=== PATIENT | female | born 1940 | race Caucasian/White ===

== ENCOUNTER 2017-09-26 05:05 | Emergency (ER) | payer OTHER ==
[~2017-09-26] VITALS: Ht 154.9 cm; Wt 43.1 kg
--- NOTE | ~2017-09-26 | EKG ---
[facility] [place] [address] ELECTROCARDIOGRAM REPORT Name: TRUPTI DELUNA [facility] [id number] Admission: 09/26/17 Attend Phys: Discharge: 09/26/17 Date of : 38 Report #: [id number] THIS REPORT FOR: //name// [facility] ED Test Date: 2017-09-26 Test Time: 05:09:50 Pat Name: TRUPTI DELUNA Department: Room: Gender: F Senior Information Developer: Rylie NGUYEN : 1940 Requested By: José Miguel Manuel Order Number: [id number] MD: Audi Hale Measurements Intervals [place] Rate: 83 P: 80 [place]: 125 QRS: 39 QRSD: 85 T: 45 QT: 398 QTc: 468 Interpretive Statements Sinus rhythm RSR' in V1 or V2, probably normal variant No previous ECG available for comparison Electronically Signed On 09-26-2017 7:49:23 CDT by Adui Hale [email or web address] <ELECTRONICALLY SIGNED> By: Audi Hale MD, [facility] 09/26/17 0749 0509 0509 Audi Hale MD, FACC /EPI
[2017-09-26] MEDS ORDERED: ASPIR 8181 MG (05:18)
[2017-09-26] MEDS ORDERED: ZETIA10 MG PO (05:20)
[2017-09-26 05:32] LABS: ABSOLUTE NEUTROPHILS 9.7 thou/uL (1.4-8.2); BASOPHILS 0.6 % (0.0-2.0); EOSINOPHILS 1.6 % (0.0-3.0); HEMATOCRIT 43.3 % (37.0-47.0); HEMOGLOBIN 14.4 gm/dL (12.0-15.0); LYMPHOCYTES 13.3 % (24.0-44.0); MCH 29.1 pg (26.0-34.0); MCHC 33.3 g/dL (28.0-37.0); MCV 87.1 fL (80.0-100.0); MONOCYTES 11.2 % (1.0-8.0); PLATELET COUNT 219 thou/uL (150-400); POLYS 73.3 % (36.0-66.0); RBC 4.97 mil/uL (4.20-5.00); RDW 14.5 % (10.5-14.5); WBC 13.2 thou/uL (4.0-11.0)
[2017-09-26 05:36] LABS: ANION GAP 9 mmol/L (7-16); BUN 29 mg/dL (7-18); CALCIUM 9.7 mg/dL (8.5-10.1); CHLORIDE 101 mmol/L (98-107); CO2 32 mmol/L (21-32); GLUCOSE 120 mg/dL (74-106); POTASSIUM 3.2 mmol/L (3.5-5.1); SODIUM 142 mmol/L (136-145)
[2017-09-26 05:44] LABS: TROPONIN-I < 0.04 ng/mL (<0.06)
[2017-09-26] MEDS ORDERED: OMEPRAZOLE 20 M20 M1 PO (05:58)
[2017-09-26 07:21] VITALS: BP 148/63
== END 2017-09-26 07:23 | disposition home or self-care (01) ==
LOC: ER 05:05
PROVIDERS: Emergency Medicine
DX: R07.89 Other chest pain (principal); E78.00 Pure hypercholesterolemia, unspecified; Z90.710 Acquired absence of both cervix and uterus; Z88.5 Allergy status to narcotic agent

== ENCOUNTER 2018-11-10 10:51 | Inpatient (IN) | payer OTHER ==
[~2018-11-10] VITALS: Ht 160 cm; Wt 47.6 kg
[2018-11-10 10:51] VITALS: BP 157/70
[~2018-11-10 10:51] MED LIST: ASPIR 8181 MG; OMEPRAZOLE 20 M20 M1 PO; ZETIA10 MG PO
[2018-11-10] MEDS ORDERED: SYNTHROID100 MC1 PO (11:06)
[2018-11-10 11:11] LABS: ABSOLUTE NEUTROPHILS 3.4 thou/uL (1.4-8.2); HEMATOCRIT 43.6 % (37.0-47.0); HEMOGLOBIN 14.6 gm/dL (12.0-15.0); LYMPHOCYTES 23.5 % (24.0-44.0); MCHC 33.5 g/dL (28.0-37.0); MCV 89.3 fL (80.0-100.0); MONOCYTES 9.3 % (1.0-8.0); PLATELET COUNT 188 thou/uL (150-400); POLYS 63.2 % (36.0-66.0); RBC 4.88 mil/uL (4.20-5.00); RDW 13.8 % (10.5-14.5); WBC 5.4 thou/uL (4.0-11.0)
[2018-11-10 14:07] VITALS: BP 145/73
[2018-11-10 14:16] VITALS: BP 127/62
[2018-11-10 14:30] VITALS: BP 130/75
[2018-11-10] MEDS ORDERED: PEPCID20 MG PO (15:03)
[2018-11-10] MEDS ORDERED: SYNTHROID50 MCG PO (15:41)
--- NOTE | 2018-11-10 15:48 | NUR ---
PATIENT ADMITTED TO ROOM ACCOMPANIED BY HER SON. SHE IS ALERT ORIENTED X4. SHE STATES SHE IS HAVING EPIGASTRIC PAIN AND RATES PAIN AT 8/10. STATES PAIN IS CONSISTENT. GI CONSULT HAS BEEN PUT. SHE HAS BEEN ORIENTED TO ROOM AND UNIT ROUTINES. WILL CONT WITH PLAN OF CARE.
[2018-11-10 20:00] VITALS: BP 138/75
[2018-11-10 21:30] VITALS: BP 146/83
[2018-11-10 22:39] LABS: CALCIUM 9.1 mg/dL (8.5-10.1); CREATININE 0.9 mg/dL (0.6-1.0); POTASSIUM 3.7 mmol/L (3.5-5.1)
[2018-11-10 22:45] LABS: ALBUMIN 3.9 g/dL (3.4-5.0); TOTAL BILIRUBIN 0.4 mg/dL (<0.1-1.0); TOTAL PROTEIN 7.4 g/dL (6.4-8.2)
[2018-11-10 22:57] LABS: CHOLESTEROL 216 mg/dL (<200); HDL CHOLESTEROL 67 mg/dL (>40); LDL CHOLESTEROL 129 mg/dL (<100); TC:HDL 3.2 Ratio (Not establshd); TRIGLYCERIDE 102 mg/dL (<150); VLDL 20 mg/dL (<40)
[2018-11-10 22:58] LABS: SERUM ASSESSMENT Clear
--- NOTE | 2018-11-11 00:08 | NUR ---
ASSUMED CARE OF PT AT 1900. A&Ox4, COOPERATIVE. VS WERE STABLE. DENIED PAIN/NAUSEA/VOMITING/SOA AT START OF SHIFT. PT C/O EPIGASTRIC PAIN 2 HRS LATER AND STATED SHE WANTED TO TAKE MORPHINE PRN, GIVEN W/ PARTIAL RELIEF. THEN C/O FEELING NAUSEATED AND TELE MONITOR NOTED AN ST ELEVATION. CONTACTED CRIMINOLOGY TEACHER. EKG DONE AND LABS DRAWN. SURVEY TECHNOLOGIST CAME TO SEE PT AND PT AGREED TO HAVE CARDIAC CATH. PT SIGNED CONSENT, SON CONTACTED. R CASTILLO SHAVED AND TRANSFERRED TO ORDER PROCESSING MANAGER. WILL GO TO CCU POST PROCEDURE. REPORT GIVEN TO RN AND WILL TRANSFER BELONGINGS.
--- NOTE | 2018-11-11 02:43 | NUR ---
ASSUMED PT CARE AT 0017. PT IS A TRANSFER FROM DATA VISUALIZATION DEVELOPER. PT IS ORIGINALLY FROM 3W. WHILE ON 3W PT HAD A ST ELEVATION AND A TROP WAS DRAWN, PT HAD ELEVATED TROPONIN LEVEL, AND SHOWN ACUTE FL. PT WAS TAKEN DOWN TO DATA VISUALIZATION DEVELOPER AND CARDIAC STENT WAS PLACED. PT IS STABLE BUT RUNNING LOW BLOOD PRESSURE. PT TO REMAIN FLAT FOR FIVE HOURS, GROIN SITE ASSESSED WITH DATA VISUALIZATION DEVELOPER NURSE, RIGHT GROIN SITE IS DRIED, CLEAN AND INTACT. NO SIGN OF DISTRESS NOTED IN PT. FAMILY AT BEDSIDE BUT LEFT. DENIES ANY FURTHER NEEDS AT THIS TIME.
[2018-11-11 04:00] VITALS: BP 94/47
[2018-11-11 05:00] LABS: HEMATOCRIT 35.1 % (37.0-47.0); MCH 30.1 pg (26.0-34.0); MCHC 33.5 g/dL (28.0-37.0); MCV 89.7 fL (80.0-100.0); RBC 3.92 mil/uL (4.20-5.00); RDW 13.9 % (10.5-14.5); WBC 6.5 thou/uL (4.0-11.0)
[2018-11-11 05:02] LABS: HEMOGLOBIN 11.8 gm/dL (12.0-15.0)
[2018-11-11 05:32] LABS: CALCIUM 7.8 mg/dL (8.5-10.1); CREATININE 0.7 mg/dL (0.6-1.0); POTASSIUM 3.4 mmol/L (3.5-5.1)
[2018-11-11 05:44] LABS: TROPONIN-I 15.58 ng/mL (<0.06)
--- NOTE | 2018-11-11 07:57 | NUR ---
PT CONTINUES TO BE STABLE. BLOOD PRESSURE STAYS LOW, PT IS STABLE, NO SIGN OF DISTRESS NOTED IN PT. PT IS ON RROM AIR, GROIN SITE IS CLEAN, DRY AND INTACT. NO PAIN REPORTED. NAUSEA IS RESOLVED. DENIES ANY FURTHER NEEDS AT THIS TIME.
--- NOTE | 2018-11-11 10:18 | CATHLAB ---
[facility] [address] INVASIVE PROCEDURE REPORT Name: TRUPTI DELUNA Room #: 213-P ADM IN M.R.#: [id number] ������������� Admission: 11/10/18 ������������� Attend Phys: Wiley Montemayor MD Discharge: ��� ������������� ��� Date of : 38 Date of Service: 11/11/18 1018 �� Report #: [id number] �������� ��������������������������������������������[id number] THIS REPORT FOR: //name// APPROVED REPORT Study performed: 11/10/2018 22:16:59 Patient Details Patient Status: In-Patient Room #: The patient is a 78 year-old female Event Personnel Audi Hale Sericulture Teacher, Paola Harris RN RN, Daysi Stroud, Rachell Bell RTR, DISCHARGE PLANNER, Monitor Procedures Performed Art Access - R femoral artery* Left Heart Cath w/or w/o Coronaries [id number] [facility] , [address] Place w/wo Plasty Single LAD 552379 LISA Place w/wo Plasty Single RCA 252193 Hemostasis w/ Mynx 86485 Initial Mod Sed Same Phys/QHP Gr5y 365161 58814 Mod Sed Same Phys/QHP Ea 912663 Indication Non-STEMI , Chest pain Risk Factors Arterial Hypertension Procedure Narrative The patient was brought emergently to the Cardiac Catheterization Laboratory and was prepped and draped in a sterile manner. The Right Groin^ was infiltrated with 1% Lidocaine subcutaneous anesthesia. A PINNACLE 6FR Sheath #[id number] sheath was inserted into the RFA^. Coronary angiography was performed using coronary diagnostic catheters. The right coronary system was accessed and visualized with a JR4 catheter. The left coronary system was accessed and visualized with a JL4 catheter. The left ventricle was accessed and visualized with a angled Pigtail catheter. Left ventricular/Aortic Valve gradient assessed via catheter pullback. Left ventriculogram was performed in 30 degree projection. Closure device was deployed with a 6 Fr MYNXGRIP 6/7F #[id number]. A hematoma occurred. Intraoperative Conscious Sedation Sedation start time: 22:35 Case end Time: 00:01 [facility] [address] [place] [address] INVASIVE PROCEDURE REPORT Name: TRUPTI DELUNA Room #: 213-P [facility] [id number] ������������� Admission: 11/10/18 ������������� Attend Phys: Wiley Montemayor MD Discharge: ��� ������������� ��� Date of : 38 Date of Service: 11/11/18 1018 �� Report #: [id number] �������� ��������������������������������������������[id number] Fentanyl 50 mcg Versed 1 mg Fluoro Time: 10.42 minutes Dose: DAP 3114.30 cGycm2 827 mGy Contrast Type and Amount: Visipaque 265 ml Coronary Angiography The patient's coronary anatomy is right dominant. Diagnostic Cath Left Main Large, normal left main LAD Mild proximal LAD plaquing. Critical 99% mid LAD stenosis just after a large bifurcating anterolateral branch. The LAD extended to the distal inferior wall Diagonal 1 Mild plaquing at the origin of the first diagonal branch (10-20%) Circumflex Large, nondominant circumflex. 60-65% mid circumflex stenosis OM1 There were several small proximal and mid vessel marginal branches without significant stenosis OM2 Distally arising large marginal branch with minimal plaquing Right Coronary Dominant right coronary with variable 65-80% mid vessel stenosis RPLV Large posterior lateral branch, angiographically normal Left Ventriculography The left ventricle is mildly dilated in size with abnormal contractility. The left ventricular ejection fraction is estimated to be 35%. Left ventricular wall motion abnormalities are present. There is 1+ mitral insufficiency. Extensive mid to distal anterolateral wall, apical, and inferoapical hypokinesis. Hemodynamics The aortic pressure is 166/82 mmHg with a mean of 103 mmHg. The left ventricular pressure is 167/12 mmHg with a mean of mmHg. The left ventricular end diastolic pressure is 36 mmHg. PCI Technique Lesion Anticoagulation was achieved with Heparin, Integrilin. Patient was preloaded with Plavix. Percutaneous coronary intervention was performed on the mid left anterior descending artery segment. The lesion stenosis prior to intervention was 99% with GRZEGORZ 2 flow. A LAUNCHER 6FR JL4.5 #[id number] Guide Catheter was used to engage the LCA ostium. A Luge Wire (J) .014 X 182CM #[id number] Interventional Guidewire was used to cross the lesion. [facility] [address] [place] [address] INVASIVE PROCEDURE REPORT Name: TRUPTI DELUNA Room #: 213-P [facility] IN .#: [id number] ������������� Admission: 11/10/18 ������������� Attend Phys: Wiley Montemayor MD Discharge: ��� ������������� ��� Date of : 38 Date of Service: 11/11/18 1018 �� Report #: [id number] �������� ��������������������������������������������[id number] BALLOON DILATION A Balloon catheter Euphora RX 2.5 x 12 #[id number] was inserted and inflated up to 14.00atm for 23seconds. Repeat angiography revealed the following post-dilatation results: moderate residual stenosis. STENT DEPLOYMENT A drug-eluting stent RESOLUTE NIVIA RX 3.0 X 18 #[id number] was inserted and inflated up to 12.00atm for 26seconds. Repeat angiography revealed the following post-stent deployment results: mild intrastent stenosis. POST STENT DEPLOYMENT BALLOON DILATION A Balloon catheter TREK NC RX 3.0 X 15 #[id number] was inserted and inflated up to 18.00atm for 28seconds. Final angiography reveals 0 % stenosis with GRZEGORZ 3 flow. PCI Technique Lesion 2 Percutaneous Coronary Intervention was performed on the proximal right coronary artery. The lesion stenosis prior to intervention was 85% with GRZEGORZ 3 flow. A LAUNCHER 6FR JR 4 SH #[id number] Guide Catheter was used to engage the RCA ostium. A Luge Wire .014 x 182CM #[id number] Interventional Guidewire was used to cross the lesion. Balloon Dilation A Balloon catheter Euphora RX 2.5 x 12 #[id number] was inserted and inflated up to 14.00atm for 28seconds. Repeat angiography revealed the following post-dilatation results: moderately severe residual stenosis. Stent Deployment A drug-eluting stent RESOLUTE NIVIA RX 3.0 X 15 #[id number] was inserted and inflated up to 12.00atm for 22seconds. Post Stent Deployment Balloon Dilation A Balloon catheter TREK NC RX 3.0 X 15 #[id number] was inserted and inflated up to 16.00atm for 26seconds. Final angiography reveals 0 % stenosis with GRZEGORZ 3 flow. Conclusion 1. Moderately severe left ventricular dysfunction with anterolateral, apical, and inferoapical hypokinesis. Ejection fraction 35% [address] [address] INVASIVE PROCEDURE REPORT Name: TRUPTI DELUNA Room #: 213-P [facility] IN .R.#: [id number] ������������� Admission: 11/10/18 ������������� Attend Phys: Wiley Montemayor MD Discharge: ��� ������������� ��� Date of : 38 Date of Service: 11/11/18 1018 �� Report #: [id number] �������� ��������������������������������������������[id number] 2. Normal left main 3. Critical mid LAD stenosis successfully stented with a 3.0 x 18 mm Resolute medicated stent 4. Moderate mid circumflex stenosis (60-65%). Follow/treat medically 5. Severe proximal RCA stenosis successfully stented with a 3.0 x 15mm Resolute medicated stent. Recommendations Cardiac Rehabilitation Referral Aggressive Medical Therapy Medications Administered JAMIA Inhibitor (any) Aspirin (any) Beta [place] (any) Statin (any) Clopidogrel ��������������������������������������������� <ELECTRONICALLY SIGNED> ���������������������������������������� By: Audi Hale MD, [facility] ��������������������������������������������� 11/11/188 17 Audi Hale MD, FAC /INF
[2018-11-11 10:24] LABS: ALBUMIN 3.3 g/dL (3.4-5.0); DIRECT BILIRUBIN 0.2 mg/dL (<0.1-0.3); TOTAL BILIRUBIN 0.5 mg/dL (<0.1-1.0); TOTAL PROTEIN 6.5 g/dL (6.4-8.2)
--- NOTE | 2018-11-11 10:25 | EKG ---
[place] [address] [facility] [place] [address] ELECTROCARDIOGRAM REPORT Name: TRUPTI DELUNA Room #: 213-P ADM IN M.R.#: [id number] ������������������ Admission: 11/10/18 ������������������ Attend Phys: Wiley Montemayor MD Discharge: ������������������ Date of : 38 Report #: [id number] ����������������������������������������������������������������� [id number] THIS REPORT FOR: //name// [facility] ED Test Date: 2018-11-10 Test Time: 11:00:05 Pat Name: TRUPTI DELUNA Department: Room: 213 Gender: F Security Operations Manager: JACKI : 1940 Requested By: Danelle Ventura Order Number: [id number] MD: Audi Hale Measurements Intervals [place] Rate: 62 P: 78 [place]: 135 QRS: 45 QRSD: 88 T: 60 QT: 478 QTc: 486 Interpretive Statements Sinus rhythm RSR' in V1 or V2, right VCD Borderline prolonged QT interval No previous ECGs available for comparison Electronically Signed On 11-11-2018 10:24:57 CDT by Audi Hale [email or web address] ��������������������������������������������� <ELECTRONICALLY SIGNED> ���������������������������������������� By: Audi Hale MD, [facility] ��������������������������������������������� 11/11/18 1024 1100 1100 Audi Hale MD, FACC /EPI
--- NOTE | 2018-11-11 10:30 | EKG ---
[place] [address] [facility] [place] [address] ELECTROCARDIOGRAM REPORT Name: TRUPTI DELUNA Room #: 213-P ADM IN M.R.#: [id number] ������������������ Admission: 11/10/18 ������������������ Attend Phys: Wiley Montemayor MD Discharge: ������������������ Date of : 38 Report #: [id number] ����������������������������������������������������������������� [id number] THIS REPORT FOR: //name// [facility] Test Date: 2018-11-10 Test Time: 21:09:47 Pat Name: TRUPTI DELUNA Department: Room: 213 Gender: F Cake Winder: jamarcus subramanian RN : 1940 Requested By: Marianna Dueñas Order Number: [id number] MD: Audi Hale Measurements Intervals [place] Rate: 70 P: 85 [place]: 128 QRS: 40 QRSD: 86 T: 64 QT: 458 QTc: 495 Interpretive Statements Sinus rhythm Anterior infarct, possibly acute Compared to ECG 09/26/2017 05:09:50 ST (T wave) deviation now present Electronically Signed On 11-11-2018 10:30:22 CDT by Audi Hale [email or web address] ��������������������������������������������� <ELECTRONICALLY SIGNED> ���������������������������������������� By: Audi Hale MD, [facility] ��������������������������������������������� 11/11/18 1030 08 08 Audi Hale MD, FAC /EPI
--- NOTE | 2018-11-11 10:33 | EKG ---
[place] [address] [facility] [employer] [place] [address] ELECTROCARDIOGRAM REPORT Name: TRUPTI DELUNA Room #: 213-P ADM IN M.R.#: [id number] ������������������ Admission: 11/10/18 ������������������ Attend Phys: Wiley Montemayor MD Discharge: ������������������ Date of : 38 Report #: [id number] ����������������������������������������������������������������� [id number] THIS REPORT FOR: //name// [facility] Test Date: 2018-11-11 Test Time: 01:07:58 Pat Name: TRUPTI DELUNA Department: Room: 213 P Gender: F Fish Smoker: navdeep : 1940 Requested By: Audi Hale Order Number: [id number] MD: Audi Hale Measurements Intervals [place] Rate: 79 P: 78 [place]: 168 QRS: -30 QRSD: 85 T: -72 QT: 562 QTc: 645 Interpretive Statements Sinus rhythm Left axis deviation Abnrm T, probable ischemia, anterolateral lds Prolonged QT interval Compared to ECG 09/26/2017 05:09:50 ST and T wave abnormality is more pronounced Prolonged QT interval now present Electronically Signed On 11-11-2018 10:33:01 CDT by Audi Hale [email or web address] ��������������������������������������������� <ELECTRONICALLY SIGNED> ���������������������������������������� By: Audi Hale MD, [facility] ��������������������������������������������� 11/11/18 1033 Audi Hale MD, [facility] /EPI
--- NOTE | 2018-11-11 10:36 | EKG ---
[place] [address] [facility] [place] [address] ELECTROCARDIOGRAM REPORT Name: TRUPTI DELUNA Room #: 213-P ADM IN M.R.#: [id number] ������������������ Admission: 11/10/18 ������������������ Attend Phys: Wiley Montemayor MD Discharge: ������������������ Date of : 38 Report #: [id number] ����������������������������������������������������������������� [id number] THIS REPORT FOR: //name// [facility] Test Date: 2018-11-11 Test Time: 07:44:53 Pat Name: TRUPTI DELUNA Department: Room: 213 Gender: F Mid Level Java Developer: Chula BERMAN : 1940 Requested By: Audi Hale Order Number: [id number] MD: Audi Hale Measurements Intervals [place] Rate: 71 P: 86 [place]: 142 QRS: -8 QRSD: 95 T: 32 QT: 444 QTc: 483 Interpretive Statements Sinus rhythm RSR' in V1 or V2, right VCD Abnormal T, consider ischemia, anterior leads Prolonged QT interval Compared to ECG 09/26/2017 05:09:50 No significant change was found Electronically Signed On 11-11-2018 10:36:08 CDT by Audi Hale [email or web address] ��������������������������������������������� <ELECTRONICALLY SIGNED> ���������������������������������������� By: Audi Hale MD, FACC ��������������������������������������������� 11/11/18 1036 0744 0744 Audi Hale MD, [facility] /EPI
--- NOTE | 2018-11-11 12:40 | NUR ---
ASSUMED CARE OF PT AT APPROX 0700. PT IS ALERT AND ORIENTED X4, MONITORED ON TELE AND ABLE TO MAINTAIN 02 SAT >90 ON RA. PT DENIES ANY PAIN AND STATES SHE IS FEELING SO MUCH BETTER THAN WHEN SHE CAME IN AND THAT ALL SYMPTOMS HAVE RESOLVED. CATH SITE IS C/D/I AND SOFT. DENIES PAIN AT SITE. ASSESSMENT CHARTED. REPLACING POTASSIUM ORDERED. UPDATED PT ON POC, PT DENIES ANY QUESTIONS OR CONCERNS AT THIS TIME. WILL CONTINUE TO MONITOR.
[2018-11-11 15:50] VITALS: BP 102/44
[2018-11-11 19:45] VITALS: BP 109/53
[2018-11-11 22:08] LABS: GLYCOHEMOGLOBIN (HGB A1C) 5.5 % (4.8-5.6)
[2018-11-11 23:50] VITALS: BP 111/51
[2018-11-12 00:05] VITALS: BP 111/51
--- NOTE | 2018-11-12 03:41 | NUR ---
ASSUMED CARE 1899. VSS. ASSSESSMENT CHARTED. PT DENIES CP, SOA, N/V, DIZZINESS OR CONCERN. R GROIN SITE CDI NO HEMATOMA. RESUME SPECIALIST CALLED ABOUT LABS AND POTASSIUM PT RECIEVING, ORDERS RECIEVED. BMP ADDED FOR AM AND IVPB POTASSIUM CHANGED TO LIQUID FOR PATIENT COMFORT. AD NEPTALI AND STEADY. SLEEPING WELL THROUGH NIGHT PT HOPEFUL FOR D/C THIS AM. WILL CONTINUE TO MONITOR AND WITH POC.
[2018-11-12 05:14] VITALS: BP 110/60
[2018-11-12 05:50] LABS: CALCIUM 8.3 mg/dL (8.5-10.1); CREATININE 0.6 mg/dL (0.6-1.0); POTASSIUM 3.9 mmol/L (3.5-5.1)
[2018-11-12 08:59] VITALS: BP 131/67
--- NOTE | 2018-11-12 09:08 | 2DMMODE ---
[facility] [address] [place] [address] 2 D/M-MODE ECHOCARDIOGRAM Name: TRUPTI DELUNA Room #: 213-P [facility] IN .R.#: [id number] ������������� Admission: 11/10/18 ������������� Attend Phys: Wiley Montemayor MD Discharge: ��� ������������� ��� Date of : 38 Date of Service: 11/12/18 0907 �� Report #: [id number] �������� ��������������������������������������������[id number] THIS REPORT FOR: //name// APPROVED REPORT Study performed: 11/12/2018 08:11:49 EXAM: Comprehensive 2D, Doppler, and color-flow Echocardiogram Patient Location: Bedside Room #: 213 Status: routine BSA: 1.42 HR: 68 bpm BP: 110/60 mmHg Rhythm: NSR Other Information Study Quality: Good Indications CAD Hypertension/HDD NE 2D Dimensions RVDd: 38.46 mm IVSd: 7.25 (7-11mm) LVOT Diam: 17.12 (18-24mm) LVDd: 34.02 mm PWd: 6.68 (7-11mm) Ascending Ao: 32.12 (22-36mm) LVDs: 24.56 (25-40mm) Aortic Root: 24.04 mm IVC: 16.00 mm Volumes Left Atrial Volume (Systole) Single Plane 4CH: 17.03 mL Single Plane 2CH: 18.64 mL LA ESV Index: 14.00 mL/m2 Aortic Valve AoV Peak Chung.: 0.99 m/s AO Peak Gr.: 3.92 mmHg LVOT Max P.19 mmHg LVOT Max V: 0.89 m/s MAXIMUS Vmax: 2.08 cm2 Mitral Valve E/A Ratio: 0.8 [facility] [address] [place] [address] 2 D/M-MODE ECHOCARDIOGRAM Name: TRUPTI DELUNA Room #: 213-P [facility] IN [facility]#: [id number] ������������� Admission: 11/10/18 ������������� Attend Phys: Wiley Montemayor MD Discharge: ��� ������������� ��� Date of : 38 Date of Service: 11/12/18 0907 �� Report #: [id number] �������� ��������������������������������������������[id number] MV Decel. Time: 231.16 ms MV E Max Chung.: 0.85 m/s MV A Chung.: 1.01 m/s MV PHT: 67.04 ms IVRT: 101.50 ms Pulmonary Valve PV Peak Chung.: 0.80 m/s PV Peak Gr.: 2.59 mmHg Pulmonary Vein P Vein S: 0.67 m/s P Vein A: 0.11 m/s P Vein D: 0.37 m/s P Vein A Dur.: 124.6 msec P Vein S/D Ratio: 1.81 Tricuspid Valve TR Peak Chung.: 3.28 m/s RAP Estimate: 10.00 mmHg TR Peak Gr.: 43.16 mmHg PA Pressure: 53.00 mmHg Left Ventricle The left ventricle is normal size. There is normal left ventricular wall thickness. The left ventricular systolic function is normal. The left ventricular ejection fraction is within the normal range. LVEF is 55%. Mild distal septal and inferoapical hypokinesis Mild diastolic dysfunction is present (impaired relaxation pattern). Right Ventricle Right ventricle is at the upper limits of normal. The right ventricular systolic function is normal. Atria The left atrium size is normal. Right atrium is mildly dilated. Aortic Valve The aortic valve is normal in structure. Trace to mild aortic regurgitation. There is no aortic valvular stenosis. Mitral Valve The mitral valve is normal in structure. Mild mitral regurgitation. No evidence of mitral valve stenosis. Tricuspid Valve The tricuspid valve is normal in structure. Moderate to severe tricuspid regurgitation. PAP is estimated at [address] [address] 2 D/M-MODE ECHOCARDIOGRAM Name: TRUPTI DELUNA Room #: 213-P [facility] IN [facility]#: [id number] ������������� Admission: 11/10/18 ������������� Attend Phys: Wiley Montemayor MD Discharge: ��� ������������� ��� Date of : 38 Date of Service: 11/12/18 0907 �� Report #: [id number] �������� ��������������������������������������������[id number] Pulmonic Valve The pulmonary valve is normal in structure. Trace pulmonic regurgitation. Great Vessels The aortic root is normal in size. The ascending aorta is normal in size. IVC is dilated and collapses <50% with inspiration. Pericardium There is no pericardial effusion. <Conclusion> The left ventricular systolic function is normal. LVEF is 55%. Mild distal septal and inferoapical hypokinesis. Mild diastolic dysfunction. Right atrium is mildly dilated. The aortic valve is normal in structure. Trace to mild aortic regurgitation. The mitral valve is normal in structure. Mild mitral regurgitation. Moderately severe tricuspid regurgitation. Pulmonary artery pressure estimated at 50 mmHg. There is no pericardial effusion. ��������������������������������������������� <ELECTRONICALLY SIGNED> ���������������������������������������� By: Audi Hale MD, [facility] ��������������������������������������������� 11/12/18906 6 6 Audi Hale MD, FAC /INF
--- NOTE | 2018-11-12 11:23 | NUR ---
Nutrition: Admitted with abdominal pain. Found to have acute CA s/p stents. Seen for underweight BMI of 18.2. Pt states she has never been much of an eater, but does not like the food here. Intake <50%. Otherwise appetite is good. Intake was good before admission. UBW 95-96 lbs, current per bed scale 104 lbs. Does not like oral supplements, but food preferences taken. States is being D/C tomorrow. Low nutrition risk.
[2018-11-12 12:42] VITALS: BP 101/56
--- NOTE | 2018-11-12 12:55 | HC ---
[facility] [place] [address] [place] [address] CONSULTATION Name: TRUPTI DELUNA Room #: 213-P [facility] IN M.R.#: [id number] Admission: 11/10/18 ������������������ Attend Phys: Wiley Montemayor MD Discharge: ������������������ Date of : 38 Report #: [id number] THIS REPORT FOR: //name// CC: Wiley Aguirre DATE OF SERVICE: 11/10/2018 REASON FOR CONSULTATION: Chest pain. HISTORY OF PRESENT ILLNESS: The patient is a 78-year-old woman with a history of dyslipidemia. She presented with epigastric pain off and on throughout the day yesterday, pain became more severe, prompting her visit to the Emergency Department. Her initial electrocardiogram demonstrated no acute ST or T-wave changes. Her troponin, however, was minimally elevated at 0.20. Earlier this evening, she reports recurrence of the same chest tightness with associated nausea and vomiting. The pain was intense and fairly striking electrocardiographic changes were seen on telemetry monitoring. A followup electrocardiogram as the pain began to resolve demonstrated minor ST and T-wave changes. Followup troponin was elevated at 6.95. She does have ongoing pain. She denies heart failure symptoms including orthopnea, paroxysmal nocturnal dyspnea, or lower extremity edema. No history of palpitations, near syncope or syncope. No bleeding problems. MEDICINES: Include aspirin 81 mg daily, Zetia 10 mg daily. ALLERGIES: She is allergic to CODEINE. PAST HISTORY: Medical records have been reviewed and include history of dyslipidemia, prior hysterectomy. SOCIAL HISTORY: She is a nonsmoker, nondrinker. She has a supportive family. FAMILY HISTORY: Unremarkable for premature coronary disease. REVIEW OF SYSTEMS: All systems negative except as that noted above. PHYSICAL EXAMINATION: GENERAL: A pleasant woman, who is alert and in no distress. VITAL SIGNS: Blood pressure is 130/75, heart rate is 66 and regular, she is afebrile, 5 feet 3 inches tall, 97 pounds. HEENT: There are neither xanthelasma, subcutaneous xanthomata, oral mucosal, digital cyanosis or kyphoscoliosis present. CHEST: Clear to auscultation and percussion. CARDIAC: Reveals a regular rate and rhythm with normal S1 and S2. No murmurs or rubs. [facility] [address] [place] [address] CONSULTATION Name: TRUPTI DELUNA Room #: 213-[facility] IN .R.#: [id number] Admission: 11/10/18 ������������������ Attend Phys: Wiley Montemayor MD Discharge: ������������������ Date of : 39 Report #: [id number] ABDOMEN: Soft and nontender. EXTREMITIES: Without cyanosis or clubbing. Radial pulses are 2+. NEUROLOGIC: She is alert with a nonfocal exam. LABORATORY DATA AND DIAGNOSTIC STUDIES: Sodium 142, potassium 3.2, creatinine 1.0. Troponin 6.95. White count 5.4, hemoglobin 14, hematocrit 43, platelet count 188. Chest x-ray demonstrates moderate hyperinflation. IMPRESSION: 1. Non-Q-wave myocardial infarction. 2. Acute systolic heart failure 3. HTN 4. Dyslipidemia. 5. GERD RECOMMENDATIONS: 1. Therapy with aspirin, beta blockade, anticoagulation. 2. Urgent coronary angiography I have discussed the angiographic procedure in detail including its associated risks. Alternatives were discussed. After a thorough discussion of the procedure, its risks and alternatives and after answering her questions, she is agreeable to proceeding. 45min cc time Thank you for asking me to participate in the care of this nice woman. ��������������������������������������������� <ELECTRONICALLY SIGNED> ���������������������������������������� By: Audi Hale MD, [facility] ��������������������������������������������� 11/12/18 1255 2203 1735 Audi Hale MD, FACC /nt
[2018-11-12 16:16] VITALS: BP 123/57
--- NOTE | 2018-11-12 18:04 | EKG ---
[address] [place] [address] ELECTROCARDIOGRAM REPORT Name: TRUPTI DELUNA Room #: 213-P ADM IN M.R.#: [id number] ������������������ Admission: 11/10/18 ������������������ Attend Phys: Wiley Montemayor MD Discharge: ������������������ Date of : 39 Report #: [id number] ����������������������������������������������������������������� [id number] THIS REPORT FOR: //name// [facility] Test Date: 2018-11-12 Test Time: 07:20:00 Pat Name: TRUPTI DELUNA Department: Room: 213 P Gender: F Greeting Card Writer: JUAN LUIS : 1940 Requested By: Audi Hale Order Number: [id number] MD: Anup Savage Measurements Intervals [place] Rate: 70 P: 85 NM: 130 QRS: 31 QRSD: 95 T: -72 QT: 489 QTc: 528 Interpretive Statements Sinus rhythm RSR' in V1 or V2, right VCD or RVH Abnrm T, consider ischemia, anterolateral lds Prolonged QT interval Baseline wander in lead(s) V6 Compared to ECG 11/11/2018 07:44:53 Right ventricular hypertrophy now present T-wave abnormality no longer present Possible ischemia still present Electronically Signed On 11-12-2018 18:04:12 CDT by Anup Savage [email or web address] ��������������������������������������������� <ELECTRONICALLY SIGNED> ���������������������������������������� By: Anup Savage MD ��������������������������������������������� 11/12/18 1804 9 9 Anup Savage MD /EPI
--- NOTE | 2018-11-12 18:24 | NUR ---
PT ALERT AND ORIENTED. VSS. DENIED HAVING PAIN OR DISCOMFORT. NO CARDIAC DISTRESS NOTED. PLAN TO BE DISCHARGE IN AM. WILL CONTINUE TO MONITOR.
[2018-11-12 19:54] VITALS: BP 119/51
[2018-11-13 01:37] VITALS: BP 119/51
--- NOTE | 2018-11-13 04:17 | NUR ---
ASSUMED PT CARE AT 1900. PT A/OX4, VITAL SIGNS STABLE. ASSESSMENT CHARTED. NO COMPLAINTS OF PAIN. PT COMPLAINED OF SORE THROAT, CEPACOLE GIVEN WHICH HELPED. PT RESTED WELL THROUGH THE NIGHT. CALLS APPROPRIATELY. PROGRESSING TOWARD PLAN OF CARE. WILL CONTINUE TO MONITOR.
[2018-11-13 05:44] VITALS: BP 122/63
[2018-11-13 07:50] VITALS: BP 133/51
[2018-11-13 08:00] VITALS: BP 133/58
--- NOTE | 2018-11-13 09:18 | EKG ---
[place] [address] [facility] [place] [address] ELECTROCARDIOGRAM REPORT Name: TRUPTI DELUNA Room #: 213-P ADM IN M.R.#: [id number] ������������������ Admission: 11/10/18 ������������������ Attend Phys: Wiley Montemayor MD Discharge: ������������������ Date of : 39 Report #: [id number] ����������������������������������������������������������������� [id number] THIS REPORT FOR: //name// [facility] Test Date: 2018-11-13 Test Time: 07:25:31 Pat Name: TRUPTI DELUNA Department: Room: 213 P Gender: F [employer]: JUAN LUIS : 1940 Requested By: Audi Hale Order Number: [id number] MD: Audi Hale Measurements Intervals [place] Rate: 65 P: 83 IA: 128 QRS: 28 QRSD: 101 T: -8 QT: 408 QTc: 425 Interpretive Statements Sinus rhythm Repol abnrm suggests ischemia, anterolateral Compared to ECG 11/12/2018 07:20:00 T-wave abnormality is less pronounced Prolonged QT interval no longer present Electronically Signed On 11-13-2018 9:18:26 CDT by Audi Hale [email or web address] ��������������������������������������������� <ELECTRONICALLY SIGNED> ���������������������������������������� By: Audi Hale MD, [facility] ��������������������������������������������� 11/13/18 0918 0725 Audi Hale MD, [facility] /EPI
[2018-11-13] MEDS ORDERED: BENAZEPRIL HCL5 MG PO (10:23)
[2018-11-13] MEDS ORDERED: CLOPIDOGREL75 MG PO (10:23)
[2018-11-13] MEDS ORDERED: ATORVASTATIN CA40 MG PO (10:23)
[2018-11-13] MEDS ORDERED: METOPROLOL SUCC25 M1 PO (10:23)
[2018-11-13 11:15] VITALS: BP 133/51
[2018-11-13 11:21] VITALS: BP 133/58
--- NOTE | 2018-11-13 12:25 | NUR ---
ASSUMED CARE OF PT AT 0700. PT A&OX4, UP AD NEPTALI. PT DENIES PAIN OR COMPLAINT. VITALS SIGNS WITHIN NORMAL LIMITS AND PT WAS SINUS RHYTYM ON TELE. PT COMMUNICATES UNDERSTANDING OF ALL DISCHARGE ORDERS/MEDS AND FOLLOWUP APPT. PT GIVEN POST CATH SITE CARE INFORMATION. PT HAD ONE IV AND TELE REMOVED. PT STATED SHE HAD ALL BELONGINGS. VOLUNTEER TOOK PT (VIA WHEELCHAIR) TO EXIT AND PT HAD FAMILY MEMBER TO DRIVE HER HOME.
--- NOTE | 2018-11-15 10:50 | HC ---
[facility] [place] [address] [place] [address] CONSULTATION Name: TRUPTI DELUNA Room #: 213-P [facility] IN M.R.#: [id number] Admission: 11/10/18 ������������������ Attend Phys: Wiley Montemayor MD Discharge: 11/13/18 ������������������ Date of : 39 Report #: [id number] THIS REPORT FOR: //name// CC: Wiley Aguirre DATE OF SERVICE: 11/11/2018 REASON FOR CONSULTATION: The patient is a 78-year-old woman with chest pain and upper abdominal pain. HISTORY OF PRESENT ILLNESS: The patient presented to [facility] with 2 days of pain. Interestingly, she describes the pain as across her upper abdomen. The pain was continuous. She was seen by Dr. Audi Hale and was noted to have an elevated troponin last evening and was taken to the catheterization lab and had an intracoronary stent placed. She reports that her upper abdominal pain has resolved. She was noted to have anterior apical hypokinesis with ejection fraction of 35%, a 99% mid LAD lesion, which was stented and an 80% right coronary lesion, which was also stented. It is of interest to note that she was in the Emergency Room at [facility] in August 2017 with chest pain. Symptoms resolved with a GI cocktail. She was discharged for further evaluation as an outpatient. This patient also describes some GI symptoms. She will have some burning in her chest and some regurgitation symptoms from time to time. She has not had dysphagia. There is no history of hematemesis. She does take an [id number]-gve-[id number] GI medicine daily, she does not recall the name. In addition, she does take 1 Aleve daily and has done so for a number of years because of knee pain. There is no history of ulcer disease. In addition, she was found to have a slightly elevated AST of 57. Her ALT was normal at 28, bilirubin was normal at 0.4 and alkaline phosphatase was normal at 82. There is no history of liver disease or gallbladder disease. She has never had jaundice or hepatitis. She very rarely consumes alcohol, has never consumed on a regular basis. PAST MEDICAL HISTORY: Notable for elevated lipids and high blood pressure. PAST SURGICAL HISTORY: Hysterectomy and cataract surgery. ALLERGIES: PEANUTS AND CODEINE. USUAL HOME MEDICATIONS: Aspirin 81 mg daily, Zetia 10 mg daily, Pepcid 10 mg at [address] [address] CONSULTATION Name: TRUPTI DELUNA Room #: 213-P [facility] IN [facility]#: [id number] Admission: 11/10/18 ������������������ Attend Phys: Wiley Montemayor MD Discharge: 11/13/18 ������������������ Date of : 39 Report #: [id number] bedtime, Synthroid 50 mcg daily, Aleve 1 daily. FAMILY HISTORY: Notable for colon cancer in her brother. She did have a colonoscopy in 2016, was reported as negative and was advised to return in 5 years. SOCIAL HISTORY: She is single, has 2 children alive and well. She smoked in college. She very rarely consumes alcohol. REVIEW OF SYSTEMS: GENERAL: No change in weight, fever or chills. CENTRAL NERVOUS SYSTEM: No focal weakness, numbness, loss of consciousness, seizure or strokes. ENT: No change in vision or hearing. No sores in the mouth. PULMONARY: No cough, pneumonia or tuberculosis. Remote cigarette smoking. CARDIOVASCULAR: Acute DE this admission with stents, chest pain a year ago. GASTROINTESTINAL: No nausea or vomiting. She does have some reflux type symptoms. She has regular bowel habits. There is no history of rectal bleeding. GENITOURINARY: Without dysuria, pyuria, kidney stones or kidney tract infections. GYNECOLOGIC: Previous hysterectomy. No discharges, bleeding or breast problems. MUSCULOSKELETAL: Knee pain for which she takes Aleve. SKIN: Without rashes. PSYCHIATRIC: No depression, anxiety or bipolar illness. ENDOCRINE: She has hypothyroidism, which is treated. No history of diabetes or other hormonal problems. HEMATOLOGIC: No malignancies. PHYSICAL EXAMINATION: GENERAL: The patient is a well-developed, well-nourished, pleasant woman. She is resting comfortably in bed, in no acute distress. VITAL SIGNS: Blood pressure 94/47. HEENT: Anicteric. Pupils equal and round. Oropharynx clear. NECK: Supple. CHEST: Clear. HEART: Regular rate and rhythm, normal S1, normal S2. ABDOMEN: Normal bowel sounds, soft, nontender, without hepatosplenomegaly. RECTAL: Not done at this time. EXTREMITIES: Without cyanosis, clubbing or edema. NEUROLOGIC: Oriented to person, place and time. Moves all 4 extremities well. ASSESSMENT: 1. Upper abdominal pain, acute myocardial infarction, status post intervention, intracoronary stents x [address] [address] CONSULTATION Name: TRUPTI DELUNA Room #: 213-P [facility] IN M.R.#: [id number] Admission: 11/10/18 ������������������ Attend Phys: Wiley Montemayor MD Discharge: 11/13/18 ������������������ Date of : 39 Report #: [id number] 2. Chronic reflux symptoms, intermittent, symptoms persist with use of famotidine. 3. Hyperlipidemia. 4. High blood pressure. 5. Family history of colon cancer in brother in his mid 70s. RECOMMENDATIONS: 1. Upper endoscopy. This could be completed as an outpatient once she recovers from her acute cardiac event. 2. Continue famotidine at this time. 3. Recheck liver function studies. 4. Agree with colonoscopy every 5 years. ��������������������������������������������� <ELECTRONICALLY SIGNED> ���������������������������������������� By: Isaak Gutierrez MD ��������������������������������������������� 11/15/18 1050 0931 Isaak Gutierrez MD /nt
== END 2018-11-13 12:16 | disposition home or self-care (01) | DRG 246 ==
LOC: ER 10:51 → EROBS 13:30 → 2N 13:30 → 3W 14:15 → 2N 11-11 00:31 → ENTRNSPT 11-13 12:05 → EDTRNSPTSTS 11-13 12:09 → 2N 11-13 12:16
PROVIDERS: Internal Medicine; Nurse Practitioner Family; Specialist; Student in an Organized Health Care Education/Training Program; ADMIT Hospitalist
PROC: B2151ZZ Fluoroscopy of Left Heart using Low Osmolar Contrast (ICD-10-PCS; principal; 2018-11-11)
PROC: 027135Z Dilation of Coronary Artery, Two Arteries with Two Drug-eluting Intraluminal Devices, Percutaneous Approach (ICD-10-PCS; principal; 2018-11-11)
PROC: 4A023N7 Measurement of Cardiac Sampling and Pressure, Left Heart, Percutaneous Approach (ICD-10-PCS; principal; 2018-11-11)
PROC: B2111ZZ Fluoroscopy of Multiple Coronary Arteries using Low Osmolar Contrast (ICD-10-PCS; principal; 2018-11-11)
DX: I21.3 ST elevation (STEMI) myocardial infarction of unspecified site (principal); I50.21 Acute systolic (congestive) heart failure; E78.00 Pure hypercholesterolemia, unspecified; I25.5 Ischemic cardiomyopathy; I11.0 Hypertensive heart disease with heart failure; K21.9 Gastro-esophageal reflux disease without esophagitis; I25.10 Atherosclerotic heart disease of native coronary artery without angina pectoris; E78.5 Hyperlipidemia, unspecified; Z90.710 Acquired absence of both cervix and uterus; Z87.891 Personal history of nicotine dependence; Z79.82 Long term (current) use of aspirin; Z79.899 Other long term (current) drug therapy; Z88.5 Allergy status to narcotic agent; Z91.010 Allergy to peanuts; Z80.0 Family history of malignant neoplasm of digestive organs
CPT/HCPCS: 10081; 10879

== ENCOUNTER → 2019-09-05 | Outpatient (CLI) | payer MEDICARE ==
[~2019-09-05] MED LIST changes: +ATORVASTATIN CA40 MG PO; +BENAZEPRIL HCL5 MG PO; +CLOPIDOGREL75 MG PO; +METOPROLOL SUCC25 M1 PO; +PEPCID20 MG PO; +SYNTHROID100 MC1 PO; +SYNTHROID50 MCG PO
== END ==
LOC: SJCVC 13:00
DX: I25.10 Atherosclerotic heart disease of native coronary artery without angina pectoris (principal); I25.5 Ischemic cardiomyopathy; E78.5 Hyperlipidemia, unspecified; K21.9 Gastro-esophageal reflux disease without esophagitis; Z90.710 Acquired absence of both cervix and uterus; Z79.899 Other long term (current) drug therapy

== ENCOUNTER → 2020-03-31 | Outpatient (CLI) | payer OTHER | LOC: SJCVC 13:19 | PROVIDERS: ATTEND Internal Medicine | DX: I11.9 Hypertensive heart disease without heart failure (principal); I25.10 Atherosclerotic heart disease of native coronary artery without angina pectoris; I25.5 Ischemic cardiomyopathy; E78.5 Hyperlipidemia, unspecified; K21.9 Gastro-esophageal reflux disease without esophagitis; Z79.899 Other long term (current) drug therapy ==

== ENCOUNTER → 2020-09-29 | Outpatient (CLI) | payer OTHER | LOC: SJCVC 13:48 | PROVIDERS: ATTEND Internal Medicine | DX: I25.10 Atherosclerotic heart disease of native coronary artery without angina pectoris (principal); I25.5 Ischemic cardiomyopathy; E78.5 Hyperlipidemia, unspecified; K21.9 Gastro-esophageal reflux disease without esophagitis; I11.0 Hypertensive heart disease with heart failure; I50.20 Unspecified systolic (congestive) heart failure; I25.2 Old myocardial infarction; Z95.5 Presence of coronary angioplasty implant and graft; Z90.710 Acquired absence of both cervix and uterus; Z88.5 Allergy status to narcotic agent; Z79.82 Long term (current) use of aspirin; Z79.899 Other long term (current) drug therapy ==

== ENCOUNTER → 2021-04-06 | Outpatient (CLI) | payer OTHER | LOC: SJCVC 13:08 | PROVIDERS: ATTEND Internal Medicine | DX: I25.10 Atherosclerotic heart disease of native coronary artery without angina pectoris (principal); I25.5 Ischemic cardiomyopathy; I10 Essential (primary) hypertension; E78.5 Hyperlipidemia, unspecified; K21.9 Gastro-esophageal reflux disease without esophagitis; Z79.82 Long term (current) use of aspirin; Z79.899 Other long term (current) drug therapy; Z88.5 Allergy status to narcotic agent ==